=== PATIENT | female | born 1970 | race Caucasian/White ===

== ENCOUNTER 2017-02-07 09:20 | Emergency (ER) | payer OTHER ==
[~2017-02-07] VITALS: Ht 165.1 cm; Wt 67.7 kg
[2017-02-07] MEDS ORDERED: OMEP-110 PO (10:15)
[2017-02-07] MEDS ORDERED: ZOLP10TA PO (10:15)
[2017-02-07] MEDS ORDERED: ASPI-515 PO (10:15)
[2017-02-07] MEDS ORDERED: SODIUM CHLORIDE 0.9% 1,000 ML IV ONE (10:36)
[2017-02-07] MEDS ORDERED: SODIUM CHLORIDE 0.9% 1,000ML IVBOLUS ONE (11:00)
[2017-02-07 11:20] VITALS: BP 116/80
[2017-02-07 11:29] LABS: BLOOD UREA NITROGEN 10 mg/dL (7-18)
[2017-02-07 11:32] LABS: ASPARTATE AMINO TRANSFERASE 25 U/L (15-37)
[2017-02-07 11:36] LABS: IS PT STATUS REG ER OR PRE ER? YES
== END 2017-02-07 12:39 | disposition home or self-care (01) ==
LOC: ED 12:33
DX: J20.8 Acute bronchitis due to other specified organisms (principal); B97.89 Other viral agents as the cause of diseases classified elsewhere; Z88.6 Allergy status to analgesic agent; Z88.0 Allergy status to penicillin
CPT/HCPCS: 36415; 71010; 80053; 83605; 84484; 85025; 87040; 93005; 96360; 99285; J7030

== ENCOUNTER → 2017-08-23 | Outpatient (CLI) | payer OTHER ==
[~2017-08-23] MED LIST: ASPI-515 PO; LACT1CAP35 PO; OMEP-110 PO; ZOLP10TA PO
[2017-08-23 15:59] LABS: HEMATOCRIT 42.7 % (34.6-47.8); HEMOGLOBIN 14.2 g/dL (11.7-16.4); WHITE BLOOD COUNT 6.9 x10^3/uL (3.4-10)
== END | disposition home or self-care (01) ==
LOC: STAR 14:53
PROVIDERS: ATTEND Obstetrics & Gynecology
DX: Z01.818 Encounter for other preprocedural examination (principal); G89.29 Other chronic pain; R10.2 Pelvic and perineal pain
CPT/HCPCS: 36415; 81003; 85025

== ENCOUNTER 2017-09-01 13:46 | Day surgery (SDC) | payer OTHER ==
[~2017-09-01] VITALS: Ht 165.1 cm; Wt 65.0 kg
[2017-09-01] MEDS ORDERED: BUPIVACAINE/PF 0.25% ONE (13:54)
[2017-09-01 14:08] VITALS: BP 135/92
[2017-09-01] MEDS ORDERED: LACTATED RINGERS 1,000 ML IV SCH (14:10)
[2017-09-01] MEDS ORDERED: FENTANYL PF 100 MCG/2ML ONE ×2 (15:07→16:56)
[2017-09-01] MEDS ORDERED: KETAMINE 10 MG/ML, 20ML ONE (15:07)
[2017-09-01] MEDS ORDERED: PROPOFOL 50 ML ONE (15:07)
[2017-09-01] MEDS ORDERED: MIDAZOLAM 1 MG/ML, 2ML ONE (15:07)
[2017-09-01] MEDS ORDERED: ROCURONIUM 10 MG/ML,10ML ONE (15:40)
[2017-09-01] MEDS ORDERED: LABETALOL 5MG/ML, 20ML ONE (15:40)
[2017-09-01] MEDS ORDERED: SUCCINYLCHOLINE 20 MG/ML, 10ML ONE (15:40)
[2017-09-01] MEDS ORDERED: ONDANSETRON 2MG/ML, 2ML ONE (15:40)
[2017-09-01] MEDS ORDERED: CEFAZOLIN 1,000 MG ONE (15:40)
[2017-09-01] MEDS ORDERED: KETOROLAC 30 MG/1 ML ONE (15:40)
[2017-09-01] MEDS ORDERED: DEXAMETHASONE 4 MG/ML, 1ML ONE (15:40)
[2017-09-01] MEDS ORDERED: BUPIVACAINE/PF 0.25% INFIL ONE (16:02)
[2017-09-01] MEDS ORDERED: MEPERIDINE/PF 25MG/0.5ML IVPush PRN (16:30)
[2017-09-01] MEDS ORDERED: OXYcodone 5 MG/5 ML ORAL.SOL UDC PO PRN (16:30)
[2017-09-01] MEDS ORDERED: ACETAMINOPHEN 325 MG TABLET PO PRN (16:30)
[2017-09-01] MEDS ORDERED: PROMETHAZINE 25 MG/ML, 1ML IV PRN (16:30)
[2017-09-01] MEDS ORDERED: MIDAZOLAM 1 MG/ML, 2ML IV PRN (16:30)
[2017-09-01] MEDS ORDERED: ALBUTEROL SULFATE 2.5 MG/3 ML NPPB PRN (16:30)
[2017-09-01] MEDS: HYDROmorphone 1 MG/ML, 1ML IV PRN ×3 (16:52→17:23)
[2017-09-01] MEDS ORDERED: ACETAMINOPHEN 650 MG/20.3 ML UDC ONE (16:56)
[2017-09-01] MEDS ORDERED: OXYcodone 5 MG/5 ML ORAL.SOL UDC ONE (16:57)
[2017-09-01] MEDS ORDERED: HYDROmorphone 2 MG/ML, 1ML ONE (16:57)
[2017-09-01] MEDS: FENTANYL PF 100 MCG/2ML IV PRN ×2 (16:59→17:18)
[2017-09-01] MEDS ORDERED: ONDANSETRON 2MG/ML, 2ML IV PRN (20:00)
[2017-09-01] MEDS ORDERED: IBUPROFEN 600 MG TABLET PO PRN (20:00)
[2017-09-01] MEDS ORDERED: OXYcodone/APAP 5/325MG TABLET PO PRN (21:00)
[2017-09-01] MEDS ORDERED: KETOROLAC 30 MG/1 ML IV PRN (22:30)
[2017-09-02] MEDS ORDERED: OXYC500S2 PO (10:08)
[2017-09-02] MEDS ORDERED: IBUP-1222 PO (10:08)
[2017-09-02] MEDS ORDERED: ONDA8TAB9 PO (10:08)
[2017-09-02] MEDS ORDERED: FENTANYL PF 250 MCG/5ML ONE (15:02)
[2017-09-02] MEDS ORDERED: ROCURONIUM 10 MG/ML,10ML ONE (15:03)
[2017-09-02] MEDS ORDERED: PROPOFOL 10 MG/ML, 20ML ONE (15:03)
[2017-09-02] MEDS ORDERED: NEOSTIGMINE 1 MG/ML, 10ML ONE (16:02)
[2017-09-02] MEDS ORDERED: GLYCOPYRROLATE 0.4 MG/2 ML, 2ML ONE (16:02)
[2017-09-02] MEDS ORDERED: ONDANSETRON 2MG/ML, 2ML ONE (16:04)
[2017-09-02] MEDS ORDERED: KETOROLAC 30 MG/1 ML ONE (16:06)
== END 2017-09-01 20:18 | disposition home or self-care (01) ==
LOC: OUT 13:46 → 4NOR 18:10 → OUT 20:18
PROVIDERS: ATTEND Obstetrics & Gynecology
DX: N83.292 Other ovarian cyst, left side (principal); N80.3 Endometriosis of pelvic peritoneum; Z88.6 Allergy status to analgesic agent; Z88.0 Allergy status to penicillin; K21.9 Gastro-esophageal reflux disease without esophagitis; Z79.82 Long term (current) use of aspirin; Z98.890 Other specified postprocedural states; Z90.710 Acquired absence of both cervix and uterus; Z90.49 Acquired absence of other specified parts of digestive tract; Z83.3 Family history of diabetes mellitus
CPT/HCPCS: 58661; 88305; J0330; J0690; J1100; J1170; J1885; J2250; J2405; J2704; J3010; J3490; J7120; J2710

== ENCOUNTER 2017-09-02 10:00 | Inpatient (IN) | payer OTHER ==
[~2017-09-02] VITALS: Ht 165.1 cm; Wt 66.9 kg
[2017-09-02] MEDS ORDERED: IBUP-1222 PO (10:08)
[2017-09-02] MEDS ORDERED: ONDA8TAB9 PO (10:08)
[2017-09-02] MEDS ORDERED: OXYC500S2 PO (10:08)
[2017-09-02] MEDS ORDERED: SODIUM CHLORIDE 0.9% 1,000 ML IV ONE ×3 (10:15→12:53)
[2017-09-02] MEDS ORDERED: SODIUM CHLORIDE FLUSH 10ML SYR IVF ONE (10:30)
[2017-09-02] MEDS ORDERED: ONDANSETRON 2MG/ML, 2ML IVPush ONE (10:30)
[2017-09-02] MEDS ORDERED: MORPHINE SULFATE 4 MG/ML, 1ML IVPush PRN ×2 (10:30→13:00)
[2017-09-02] MEDS ORDERED: SODIUM CHLORIDE 0.9% 1,000ML IVBOLUS ONE (10:30)
[2017-09-02 10:47] LABS: HEMATOCRIT 42.5 % (34.6-47.8); HEMOGLOBIN 14.2 g/dL (11.7-16.4); WHITE BLOOD COUNT 13.9 x10^3/uL (3.4-10)
[2017-09-02 10:59] LABS: BLOOD UREA NITROGEN 12 mg/dL (7-18)
[2017-09-02] MEDS ORDERED: MORPHINE SULFATE 4 MG/ML, 1ML ONE ×2 (11:01→12:06)
[2017-09-02] MEDS ORDERED: ONDANSETRON 2MG/ML, 2ML ONE ×2 (11:01→15:25)
[2017-09-02] MEDS ORDERED: MORPHINE SULFATE 4 MG/ML, 1ML IVPush ONE (12:30)
[2017-09-02] MEDS ORDERED: SODIUM CHLORIDE FLUSH 10ML SYR IVF PRN (13:00)
[2017-09-02] MEDS ORDERED: ONDANSETRON 2MG/ML, 2ML IVPush PRN ×2 (13:00→15:30)
[2017-09-02] MEDS ORDERED: HYDROmorphone 2 MG/ML, 1ML ONE (13:54)
[2017-09-02] MEDS ORDERED: HYDROmorphone 1 MG/ML, 1ML IVPush PRN (14:00)
[2017-09-02] MEDS ORDERED: BUPIVACAINE/PF 0.25% ONE (14:57)
[2017-09-02] MEDS ORDERED: BUPIVACAINE/PF 0.5% ONE (14:57)
[2017-09-02] MEDS ORDERED: EPINEPHRINE 1 MG/ML, 1ML ONE (14:57)
[2017-09-02] MEDS ORDERED: DEXAMETHASONE 4 MG/ML, 1ML ONE (15:25)
[2017-09-02] MEDS ORDERED: ROCURONIUM 10 MG/ML,10ML ONE (15:25)
[2017-09-02] MEDS ORDERED: CEFOTETAN 2 GM ONE (15:25)
[2017-09-02] MEDS ORDERED: SUCCINYLCHOLINE 20 MG/ML, 10ML ONE (15:25)
[2017-09-02] MEDS ORDERED: NEOSTIGMINE 1 MG/ML, 10ML ONE (15:25)
[2017-09-02] MEDS ORDERED: GLYCOPYRROLATE 0.2MG/1ML, 5ML ONE (15:25)
[2017-09-02] MEDS ORDERED: PROPOFOL 10 MG/ML, 20ML ONE (15:25)
[2017-09-02] MEDS ORDERED: KETOROLAC 30 MG/1 ML IV PRN ×2 (15:30→22:15)
[2017-09-02] MEDS ORDERED: FENTANYL PF 100 MCG/2ML IV PRN (15:30)
[2017-09-02] MEDS ORDERED: LABETALOL 5MG/ML, 20ML IV PRN (15:30)
[2017-09-02] MEDS ORDERED: ACETAMINOPHEN 325 MG TABLET PO PRN (15:30)
[2017-09-02] MEDS ORDERED: PROMETHAZINE 25 MG/ML, 1ML IV PRN (15:30)
[2017-09-02] MEDS ORDERED: HYDROmorphone 1 MG/ML, 1ML IV PRN (15:30)
[2017-09-02] MEDS ORDERED: OXYcodone 5 MG/5 ML ORAL.SOL UDC PO PRN (15:30)
[2017-09-02] MEDS ORDERED: KETOROLAC 30 MG/1 ML ONE (16:20)
[2017-09-02] MEDS: MEPERIDINE/PF 25MG/0.5ML IVPush PRN ×2 (16:20→16:59)
[2017-09-02] MEDS ORDERED: MEPERIDINE/PF 50 MG/ML ONE (16:20)
[2017-09-02] MEDS ORDERED: KETOROLAC 30 MG/1 ML IVPush ONE (18:00)
[2017-09-02] MEDS: LACTATED RINGERS 1,000 ML IV SCH (18:30)
[2017-09-02] MEDS ORDERED: HYDROcodone/APAP 5/325 TABLET PO PRN (18:30)
[2017-09-02] MEDS ORDERED: morphine SULFATE 10 MG/ML, 1ML IV PRN (18:30)
[2017-09-02 20:00] VITALS: BP 107/69
[2017-09-03 00:07] VITALS: BP 117/75
[2017-09-03] MEDS: LACTATED RINGERS 1,000 ML IV SCH ×3 (01:03→19:30)
[2017-09-03] MEDS: CEFOTETAN PMX 1GM/50ML 50 ML IVPB SCH ×2 (03:39→15:21)
[2017-09-03 05:30] LABS: HEMATOCRIT 39.1 % (34.6-47.8); HEMOGLOBIN 13.1 g/dL (11.7-16.4)
[2017-09-03 05:40] LABS: BLOOD UREA NITROGEN 13 mg/dL (7-18)
[2017-09-03 07:10] VITALS: BP 115/71
[2017-09-03] MEDS ORDERED: ONDANSETRON 8 MG TABLET PO ONE (09:00)
[2017-09-03] MEDS ORDERED: IBUPROFEN 200 MG TABLET PO PRN (09:00)
[2017-09-03] MEDS: SODIUM CHLORIDE FLUSH 10ML SYR IVF SCH ×3 (09:00→22:44)
[2017-09-03] MEDS: ENOXAPARIN 40 MG/0.4 ML SQ SCH (10:40)
[2017-09-03 13:27] VITALS: BP 114/76
[2017-09-03] MEDS: OXYcodone/APAP 5/325MG TABLET PO PRN ×2 (15:43→22:44)
[2017-09-03 20:00] VITALS: BP 125/80
[2017-09-04] MEDS: LACTATED RINGERS 1,000 ML IV SCH ×2 (02:30→07:51)
[2017-09-04] MEDS: CEFOTETAN PMX 1GM/50ML 50 ML IVPB SCH (03:35)
[2017-09-04 05:07] VITALS: BP 139/90
[2017-09-04] MEDS: OXYcodone/APAP 5/325MG TABLET PO PRN ×2 (05:25→11:57)
[2017-09-04 06:59] VITALS: BP 128/81
[2017-09-04] MEDS: SODIUM CHLORIDE FLUSH 10ML SYR IVF SCH (11:07)
[2017-09-04] MEDS: ENOXAPARIN 40 MG/0.4 ML SQ SCH (11:57)
[2017-09-04 13:31] VITALS: BP 141/86
== END 2017-09-04 15:20 | disposition home or self-care (01) | DRG 331 ==
LOC: OR 12:52 → EDIP 12:53 → OR 13:33 → 4NOR 17:47 → OBSVTOIN 18:18
PROVIDERS: ADMIT Obstetrics & Gynecology; ATTEND Obstetrics & Gynecology
PROC: 0DQA0ZZ Repair Jejunum, Open Approach (ICD-10-PCS; principal; 2017-09-02 15:30)
DX: K63.1 Perforation of intestine (nontraumatic) (principal); Z88.0 Allergy status to penicillin; Z90.49 Acquired absence of other specified parts of digestive tract; Z90.710 Acquired absence of both cervix and uterus; Z90.721 Acquired absence of ovaries, unilateral
CPT/HCPCS: 36415; 74176; 80048; 81001; 82040; 85025; 87086; 93005; G0378; J0171; J1100; J1170; J1650; J1885; J2175; J2405; J2704; J2710; J3490; J0330; J7030; J7120; S0074

== ENCOUNTER → 2018-11-08 | Outpatient (CLI) | payer OTHER ==
[~2018-11-08] MED LIST changes: +IBUP-1222 PO; +ONDA8TAB9 PO; +OXYC500S2 PO
== END | disposition home or self-care (01) ==
LOC: CFH 12:33
PROVIDERS: ATTEND Physician Assistant Medical
DX: R07.9 Chest pain, unspecified (principal); I10 Essential (primary) hypertension
CPT/HCPCS: 78452; 93017; 93306; A9502

== ENCOUNTER → 2020-05-31 | Outpatient (CLI) | payer OTHER ==
[~2020-05-31] MED LIST changes: +BENEFIBER PO; +HYDROCHLOROTH12.5 MG PO; +IRBESARTAN PO; +PROBIOTIC PO; +ROSU5TAB PO; +TIOT18CA INH; +baby aspirin PO
== END | disposition home or self-care (01) ==
LOC: STAR 15:13
PROVIDERS: ATTEND Urology
DX: Z01.812 Encounter for preprocedural laboratory examination (principal); Z20.828 Contact with and (suspected) exposure to other viral communicable diseases; N20.0 Calculus of kidney
CPT/HCPCS: 36415; 87635

== ENCOUNTER 2020-06-04 10:56 | Day surgery (SDC) | payer OTHER ==
[~2020-06-04] VITALS: Ht 165.1 cm; Wt 75.0 kg
[~2020-06-04 10:56] MED LIST changes: +FENTANYL PF 250 MCG/5ML ONE; +MIDAZOLAM 1 MG/ML, 2ML ONE
[2020-06-04] MEDS ORDERED: LACTATED RINGERS 1,000 ML IV SCH (11:11)
[2020-06-04] MEDS ORDERED: CHLORHEXIDINE 15 ML UDC MM STA (11:15)
[2020-06-04 11:28] VITALS: BP 121/83
[2020-06-04] MEDS ORDERED: SCOPOLAMINE 1MG PATCH TD ONE (12:55)
[2020-06-04] MEDS ORDERED: SCOPOLAMINE 1MG PATCH TD SCH (13:00)
[2020-06-04] MEDS ORDERED: CEFAZOLIN 1,000 MG ONE (13:08)
[2020-06-04] MEDS ORDERED: SUCCINYLCHOLINE 20 MG/ML, 10ML ONE (13:08)
[2020-06-04] MEDS ORDERED: ONDANSETRON 2MG/ML, 2ML ONE (13:08)
[2020-06-04] MEDS ORDERED: DEXAMETHASONE 4 MG/ML, 1ML ONE (13:08)
[2020-06-04] MEDS ORDERED: KETOROLAC 30 MG/1 ML ONE ×2 (13:08→13:47)
[2020-06-04] MEDS ORDERED: SUGAMMADEX 200 MG/2 ML IVPush ONE (13:08)
[2020-06-04] MEDS ORDERED: PROPOFOL 10 MG/ML, 20ML ONE (13:08)
[2020-06-04] MEDS ORDERED: GLYCOPYRROLATE 0.2MG/1ML, 5ML ONE ×2 (13:08→13:52)
[2020-06-04] MEDS ORDERED: hydrALAzine 20 MG/ML, 1ML IV PRN (13:30)
[2020-06-04] MEDS ORDERED: ONDANSETRON 2MG/ML, 2ML IVPush PRN (13:30)
[2020-06-04] MEDS ORDERED: ALBUTEROL SULFATE 2.5 MG/3 ML NPPB PRN (13:30)
[2020-06-04] MEDS ORDERED: OXYcodone 5 MG/5 ML ORAL.SOL UDC PO PRN (13:30)
[2020-06-04] MEDS ORDERED: PROMETHAZINE 25 MG/ML, 1ML IV PRN (13:30)
[2020-06-04] MEDS ORDERED: MEPERIDINE/PF 25MG/0.5ML IVPush PRN (13:30)
[2020-06-04] MEDS ORDERED: HYDROmorphone 1 MG/ML, 1ML INJ IV PRN (13:30)
[2020-06-04] MEDS ORDERED: DIAZEPAM 5 MG/ML, 2ML IV PRN ×2 (13:30)
[2020-06-04] MEDS ORDERED: LABETALOL 5MG/ML, 20ML IV PRN (13:30)
[2020-06-04] MEDS ORDERED: KETOROLAC 30 MG/1 ML IV PRN (13:30)
[2020-06-04] MEDS ORDERED: METOCLOPRAMIDE 5 MG/ML, 2ML IV PRN (13:30)
[2020-06-04] MEDS ORDERED: FENTANYL PF 100 MCG/2ML ONE (14:16)
[2020-06-04] MEDS: FENTANYL PF 100 MCG/2ML IV PRN ×3 (14:17→14:37)
[2020-06-04] MEDS ORDERED: OXYcodone 5 MG/5 ML ORAL.SOL UDC ONE (14:27)
[2020-06-04] MEDS ORDERED: MEPERIDINE/PF 25MG/ML,1ML ONE (14:42)
== END 2020-06-04 17:25 | disposition home or self-care (01) ==
LOC: OUT 10:56
PROVIDERS: ATTEND Urology
DX: N20.0 Calculus of kidney (principal); Z79.82 Long term (current) use of aspirin; Z79.891 Long term (current) use of opiate analgesic; Z79.899 Other long term (current) drug therapy; Z86.718 Personal history of other venous thrombosis and embolism; Z88.0 Allergy status to penicillin; Z88.8 Allergy status to other drugs, medicaments and biological substances
CPT/HCPCS: 52353; 74018; 82360; 88300; C1726; C1769; J0330; J0690; J1100; J1885; J2175; J2250; J2405; J2704; J3010; J7120; 76000